=== PATIENT | male | born 1955 | race Asian ===

== ENCOUNTER 2023-02-12 16:37 | Emergency (ER) | payer MEDICARE, BC ==
[~2023-02-12] VITALS: Ht 182.9 cm; Wt 80.5 kg
[~2023-02-12 16:37] MED LIST: ASPI-529 PO; CHOL10002 PO; CYCL-394 PO; DOCU-28 PO; FENO145T26 PO; HYDR-4383 PO; LANS15CA14 PO; LEVO50TA PO; METO50TA16 PO; MULT-620 PO; ROSU40TA PO; TRAM50TA2 PO
[2023-02-12] MEDS ORDERED: EVOL140P3 SQ (19:48)
[2023-02-12] MEDS ORDERED: TRAM100C3 PO (19:48)
[2023-02-12] MEDS ORDERED: BUDE10.2 INH (19:48)
[2023-02-12] MEDS ORDERED: PANT40TA54 PO (19:48)
[2023-02-12] MEDS ORDERED: MONT-40 PO (19:48)
[2023-02-12 20:05] LABS: BASOPHILS % (AUTO) 0.2 % (0-1); EOSINOPHILS % (AUTO) 0.2 % (0-6); HEMATOCRIT 44.6 % (42.0-52.0); HEMOGLOBIN 15.1 g/dl (14.0-17.9); LYMPHOCYTES # (AUTO) 1.2 X10'3 (1.1-4.8); LYMPHOCYTES % (AUTO) 7.1 % (21-51); MEAN CORPUSCULAR HEMOGLOBIN 30.7 PG (27.0-31.0); MEAN CORPUSCULAR HGB CONC 33.8 g/dL (33.0-36.5); MEAN CORPUSCULAR VOLUME 90.8 FL (78-98); MEAN PLATELET VOLUME 9.5 FL (7.4-10.4); MONOCYTES # (AUTO) 0.8 X10'3 (0-0.9); NEUTROPHILS # (AUTO) 14.3 X10'3 (1.8-7.7); NEUTROPHILS % (AUTO) 87.5 % (42-75); PLATELET COUNT 210 X10'3 (140-440); RED BLOOD COUNT 4.91 X10'6 (4.70-6.10); WHITE BLOOD COUNT 16.4 X10'3 (4.5-11.0)
[2023-02-12 20:13] LABS: APTT 21 SECONDS (22-32); D-DIMER 1.44 MG/L FEU (0-0.50); PROTHROMBIN TIME 10.3 SECONDS (9.0-12.0)
[2023-02-12 20:22] LABS: MAGNESIUM 2.4 MG/DL (1.5-2.4); PRO BRAIN NATRIURETIC PEPTIDE 42 PG/ML (0-125)
[2023-02-12 20:56] LABS: ALANINE AMINOTRANSFERASE 38 U/L (12-78); ALBUMIN 3.9 G/DL (3.4-5.0); ALKALINE PHOSPHATASE 91 IU/L (46-116); ANION GAP 10 (8-16); ASPARTATE AMINO TRANSFERASE 31 U/L (10-37); BILIRUBIN,TOTAL 0.4 MG/DL (0.1-1.0); BLOOD UREA NITROGEN 19 MG/DL (7-18); BUN/CREATININE RATIO 13.6 (10.0-20.0); CALCIUM 9.6 MG/DL (8.5-10.1); CHLORIDE 103 MMOL/L (99-107); GLUCOSE 129 MG/DL (70-104); POTASSIUM 3.9 MMOL/L (3.5-5.1); SODIUM 137 MMOL/L (135-145); TOTAL PROTEIN 7.7 G/DL (6.4-8.2); eCRCL 55 ML/MIN; eGFR 50 ML/MIN
[2023-02-12] MEDS ORDERED: levetiracetam inj 1,000 MG in normal saline 100ml IV soln 90 ML IV STA (22:45)
[2023-02-12] MEDS ORDERED: levetiracetam inj 1,000 MG in normal saline 100ml IV soln 100 ML IV STA (22:47)
[2023-02-12] MEDS ORDERED: KEP500T PO (22:54)
[2023-02-12] MEDS ORDERED: acetaminophen 325mg tablet PO ONE (23:50)
[2023-02-13 00:24] VITALS: BP 180/110; RESP 12; TEMP 98; O2SAT 100
== END 2023-02-13 00:27 | disposition home or self-care (01) ==
LOC: ER 16:38
DX: R56.9 Unspecified convulsions (principal); I11.0 Hypertensive heart disease with heart failure; E03.9 Hypothyroidism, unspecified; K21.9 Gastro-esophageal reflux disease without esophagitis; Z88.1 Allergy status to other antibiotic agents; Z88.8 Allergy status to other drugs, medicaments and biological substances; Z79.899 Other long term (current) drug therapy
CPT/HCPCS: 36415; 70450; 71045; 80053; 83735; 83880; 84484; 85025; 85379; 85610; 85730; 93005; 96365; 99285; J1953; J3490

== ENCOUNTER 2023-02-28 12:17 | Outpatient (CLI) | payer MEDICARE, BC ==
[~2023-02-28 12:17] MED LIST changes: +BUDE10.2 INH; -CYCL-394 PO; +EVOL140P3 SQ; -FENO145T26 PO; -HYDR-4383 PO; +KEP500T PO; -LANS15CA14 PO; -METO50TA16 PO; +MONT-40 PO; +PANT40TA54 PO; +TRAM100C3 PO
== END 2023-02-28 23:59 | disposition home or self-care (01) ==
LOC: RAD 12:17
PROVIDERS: ATTEND Nurse Practitioner Family
DX: G40.89 Other seizures (principal)
CPT/HCPCS: 95816